=== PATIENT | female | born 1995 | race Caucasian/White ===

== ENCOUNTER → 2017-02-16 | Outpatient (CLI) | payer OTHER ==
--- NOTE | 2017-02-16 16:16 | REP ---
LUMBAR SPINE, FIVE VIEWS: HISTORY: Back pain. There is no acute fracture or subluxation. The L3-4 and L4-5 intervertebral discs are decreased in height consistent with disc degeneration. The facet joints are normal in appearance. IMPRESSION: Degenerative change as described above. Signed by James Jama MD 02/16/2017 04:20 P
== END ==
LOC: M WUC 15:26
PROVIDERS: ATTEND Physician Assistant
DX: M54.5 Low back pain (principal)

== ENCOUNTER → 2017-11-11 | Outpatient (REF) | payer OTHER | LOC: M SFHCLERA 15:29 | DX: J02.9 Acute pharyngitis, unspecified (principal) ==

== ENCOUNTER → 2018-05-30 | Outpatient (CLI) | payer BC ==
--- NOTE | 2018-05-30 16:56 | REP ---
KUB, ONE VIEW: HISTORY: Lower abdominal pain. A small amount of air is present in the intestine. There are no air fluid levels or dilated loops of intestine. There is no pneumoperitoneum. A moderate amount of stool is present in the colon. IMPRESSION:Nonspecific bowel gas pattern. Electronically Signed by James Jama MD 05/30/2018 05:02 P
[2018-05-30 17:11] LABS: ALBUMIN 4.2 GM/DL (3.2-5.2); ALT/SGPT 29 U/L (12-78); BILIRUBIN,TOTAL 0.5 MG/DL (0.2-1.0); BLOOD UREA NITROGEN 11 MG/DL (7-18); CALCIUM LEVEL 8.9 MG/DL (8.5-10.1); CARBON DIOXIDE LEVEL 27 MEQ/L (21-32); CHLORIDE LEVEL 99 MEQ/L (98-107); CREATININE FOR GFR 0.86 MG/DL (0.55-1.30); FREE T4 1.28 NG/DL (0.76-1.46); GLOMERULAR FILTRATION RATE > 60.0 (>60); GLUCOSE, FASTING 86 MG/DL (70-100); POTASSIUM SERUM 4.1 MEQ/L (3.5-5.1); SODIUM LEVEL 137 MEQ/L (136-145); THYROID STIMULATING HORMONE 0.879 uIU/ML (0.358-3.740); TOTAL PROTEIN 7.3 GM/DL (6.4-8.2)
[2018-05-30 17:29] LABS: BASO # 0.1 10^3/uL (0.0-0.2); BASO % 0.9 % (0.0-1.0); EOS # 0.1 10^3/uL (0.0-0.50); EOS % 0.7 % (0.0-3.0); HEMATOCRIT 43.7 % (36.0-47.0); HEMOGLOBIN 14.9 g/dl (12.0-15.5); LYMPH % 27.6 % (24.0-44.0); MEAN CORPUSCULAR HGB CONC 34.1 g/dl (32.0-36.5); MEAN CORPUSCULAR VOLUME 90.9 fl (80.0-96.0); MONO # 0.5 10^3/uL (0.0-0.8); MONO % 7.3 % (0.0-5.0); NEUTROPHILS # 4.7 10^3/uL (1.8-7.7); NEUTROPHILS % 63.1 % (36.0-66.0); PLATELET COUNT, AUTOMATED 281 10^3/uL (150-450); RED BLOOD COUNT 4.81 10^6/uL (4.00-5.40); WHITE BLOOD COUNT 7.4 10^3/uL (4.0-10.0)
[2018-05-30 19:23] LABS: CHLAMYDIA DNA AMPLIFICATION NEGATIVE (NEGATIVE); GC DNA AMPLIFICATION NEGATIVE (NEGATIVE)
== END ==
LOC: M WUC 13:08
PROVIDERS: ATTEND Physician Assistant
DX: R10.30 Lower abdominal pain, unspecified (principal)

== ENCOUNTER → 2018-05-30 | Outpatient (CLI) | payer BC ==
[~2018-05-30] MED LIST: GASTROGRAFIN SOLUTION 30ML (Q9963) As Ordered ONE; ISOVUE-370 76% 100ML VIAL (Q9967) As Ordered ONE
--- NOTE | 2018-05-30 19:32 | REP ---
CT ABDOMEN AND PELVIS WITHOUT CONTRAST: HISTORY: Low abdominal pain. The liver, gallbladder, pancreas, spleen, adrenal glands and kidneys are normal in appearance. There is no mass, adenopathy or free fluid. The visualized lungs are clear. The urinary bladder and uterus are normal in appearance. A 2.8 cm hypodensity is present in the left pelvis. This may represent an ovarian cyst. The bony structure is intact. IMPRESSION: There is a 2.8 cm hypodensity in the left pelvis that may represent an ovarian cyst. Ultrasound may be helpful for further evaluation. Electronically Signed by James Jama MD 05/30/2018 07:33 P
== END ==
LOC: M RAD 14:42
PROVIDERS: ATTEND Physician Assistant
DX: R10.30 Lower abdominal pain, unspecified (principal)
CPT/HCPCS: 74176; Q9963

== ENCOUNTER → 2018-06-06 | Outpatient (CLI) | payer BC ==
--- NOTE | 2018-06-06 19:41 | REP ---
Clinical: Pelvic pain . Technique: Transabdominal pelvic ultrasound followed by transvaginal examination for better evaluation of the endometrium and adnexa with color Doppler evaluation of the ovaries. Findings: Bladder is unremarkable and measures 7.7 x 6.9 x 4.8 cm . Normal anteverted uterus measures 8.7 x 3.1 x 5.3 cm . The endometrial complex measures 3.4 mm thickness. No discrete uterine or endometrial abnormalities are appreciated. Bilateral ovaries are normal in vascularity without evidence for torsion. Right ovary measures 2.4 x 1.1 x 1.7 cm ; R I = 0.39 . Left ovary measures 3.4 x 1.6 x 3.2 cm with 2.4 cm hemorrhagic follicle ; R I = 0.37 . No pelvic fluid or adnexal mass lesion . Impression: 1. Essentially normal pelvic ultrasound. 2.4 cm hemorrhagic follicle in the left ovary. Correlation is recommended and reevaluation in 4-6 weeks may be warranted to evaluate for resolution. Electronically Signed by Jovany Carpio MD 06/06/2018 07:32 P
== END ==
LOC: M RAD 13:27
PROVIDERS: ATTEND Physician Assistant
DX: R10.30 Lower abdominal pain, unspecified (principal)

== ENCOUNTER → 2018-07-22 | Outpatient (CLI) | payer BC ==
--- NOTE | 2018-07-22 18:02 | REP ---
Pelvic sonography: History: Ovarian cyst left side. Comparison CT study May 30, 2018. Comparison sonography June 06, 2018. Sonographic findings: Uterine dimensions are normal at 6.1 x 2.6 x 4.5 cm. Endometrial echo 0.8 cm thick and centrally placed. No focal uterine mass is seen. Visualized bladder dodge are smooth. Normal ovaries are seen bilaterally today. Right ovary dimensions are 2.8 x 1.5 x 1.3 cm. The left ovary measures 2.5 x 1.6 x 2.3 cm. Doppler flow is normal both ovaries. Resistive indices are measured at 0.60 on the right and 0.63 on the left. Impression: Normal pelvic sonography. Electronically Signed by Srinivas Marsh MD 07/22/2018 07:04 P
== END ==
LOC: M RAD 14:50
PROVIDERS: ATTEND Specialist
DX: N83.292 Other ovarian cyst, left side (principal)

== ENCOUNTER → 2018-11-01 | Outpatient (REF) | payer BC ==
[2018-11-01 21:09] LABS: CHLAMYDIA DNA AMPLIFICATION NEGATIVE (NEGATIVE); GC DNA AMPLIFICATION NEGATIVE (NEGATIVE)
== END ==
LOC: M LAB REF 17:25
PROVIDERS: ATTEND Specialist
DX: Z12.4 Encounter for screening for malignant neoplasm of cervix (principal); Z11.3 Encounter for screening for infections with a predominantly sexual mode of transmission

== ENCOUNTER → 2019-05-23 | Outpatient (CLI) | payer BC ==
[2019-05-23 17:40] LABS: BASO % 0.5 % (0.0-1.0); EOS # 0.1 10^3/uL (0.0-0.5); EOS % 0.7 % (0.0-3.0); HEMATOCRIT 37.4 % (36.0-47.0); LYMPH # 2.2 10^3/uL (1.5-5.0); LYMPH % 28.7 % (24.0-44.0); MEAN CORPUSCULAR HEMOGLOBIN 31.9 pg (27.0-33.0); MEAN CORPUSCULAR HGB CONC 34.8 g/dl (32.0-36.5); MEAN CORPUSCULAR VOLUME 91.7 fl (80.0-96.0); MONO # 0.4 10^3/uL (0.0-0.8); MONO % 5.4 % (0.0-5.0); NEUTROPHILS # 4.9 10^3/uL (1.5-8.5); PLATELET COUNT, AUTOMATED 218 10^3/uL (150-450); RED BLOOD COUNT 4.08 10^6/uL (4.00-5.40); WHITE BLOOD COUNT 7.6 10^3/uL (4.0-10.0)
[2019-05-23 19:58] LABS: CHLAMYDIA DNA AMPLIFICATION NEGATIVE (NEGATIVE); GC DNA AMPLIFICATION NEGATIVE (NEGATIVE)
[2019-05-24 13:30] LABS: HEPATITIS C VIRUS ABY INDEX < 0.0 INDEX (<0.8); HIV 1&2 SCREEN CENTAUR NEGATIVE (NEGATIVE); RUBELLA IgG QUALITATIVE IMMUNE (IMMUNE)
== END ==
LOC: M PLALAB 15:49
PROVIDERS: ATTEND Advanced Practice Midwife
DX: O36.80X1 Pregnancy with inconclusive fetal viability, fetus 1 (principal)

== ENCOUNTER → 2019-06-05 | Outpatient (CLI) | payer BC ==
[2019-06-05 14:05] LABS: HEMATOCRIT 37.4 % (36.0-47.0); HEMOGLOBIN 12.5 g/dl (12.0-15.5); MEAN CORPUSCULAR HEMOGLOBIN 31.4 pg (27.0-33.0); MEAN CORPUSCULAR HGB CONC 33.4 g/dl (32.0-36.5); PLATELET COUNT, AUTOMATED 201 10^3/uL (150-450); RED BLOOD COUNT 3.98 10^6/uL (4.00-5.40); WHITE BLOOD COUNT 7.7 10^3/uL (4.0-10.0)
[2019-06-05 14:33] LABS: TOTAL PROTEIN,RANDOM URINE 10.8 MG/DL (0.0-12.0)
[2019-06-05 14:35] LABS: ALT/SGPT 15 U/L (12-78); BILIRUBIN,TOTAL 0.4 MG/DL (0.2-1.0); CREATININE FOR GFR 0.66 MG/DL (0.55-1.30); GLOMERULAR FILTRATION RATE > 60.0 (>60); LDH LACTATE DEHYDROGENASE 151 U/L (84-246); URIC ACID 2.7 MG/DL (2.6-6.0)
== END ==
LOC: M PLALAB 11:15
PROVIDERS: ATTEND Advanced Practice Midwife
DX: O10.011 Pre-existing essential hypertension complicating pregnancy, first trimester (principal)

== ENCOUNTER → 2019-07-07 | Outpatient (CLI) | payer MEDICAID ==
--- NOTE | 2019-07-07 16:40 | REP ---
Clinical: Anatomical evaluation. Comparison: None . Findings: Examination demonstrates a single live intrauterine in breech presentation. motion is identified by technologist. Placenta is noted posterior and grade zero without evidence for placenta previa or abruption. Amniotic fluid volume is normal. Cervix measures 3.4 cm in length and appears closed. No evidence for nuchal cord. Gestational age by current measurements 18 weeks 1 day with STEPH 12/07/2019 . FHR equals 144 beats per minute. BPD 4.1 cm 18 weeks 3 days HC 15.0 cm 18 weeks 0 days AC 12.7 cm 18 weeks 2 days FL 2.6 cm 18 weeks 0 days HL 2.5 cm 17 weeks 6 days HC/AC ratio 1.18 Estimated weight 225 grams ( 48th percentile). Anatomical assessment demonstrates normal structures including cranium, choroid plexus, cavum, cerebellum/posterior fossa, facial features, lungs, diaphragm, stomach, cord insertion/three-vessel cord, kidneys/bladder, spine, and extremities. Impression: 1. Single live intrauterine in breech presentation demonstrating appropriate interval estimated weight. 2. Limited evaluation of the heart and ventricular outflow tracts. Remainder of the anatomical assessment is complete and normal.
== END ==
LOC: M WHC 14:45
PROVIDERS: ATTEND Advanced Practice Midwife
DX: O10.012 Pre-existing essential hypertension complicating pregnancy, second trimester (principal); Z3A.18 18 weeks gestation of pregnancy

== ENCOUNTER → 2019-08-10 | Outpatient (CLI) | payer MEDICAID ==
--- NOTE | 2019-08-10 14:14 | REP ---
OB ULTRASOUND: Real-time sonographic evaluation of the gravid uterus performed. There is a single living intrauterine gestation with an estimated gestational age 23 weeks 0 days, EDC 12/07/2019. Today's measurements indicate appropriate growth. Biometry and Growth: BPD 55 mm = 22 weeks 6 days, 49th percentile HC 210 mm = 23 weeks 1 day, 55th percentile AC 186 mm = 23 weeks 3 days, 60th percentile FL 39 mm = 22 weeks 4 days, 41st percentile HC/AC ratio 1.13 with in normal range Estimated weight 557 grams 49th percentile. SEEN/GROSSLY UNREMARKABLE Lateral ventricles Yes Posterior fossa Yes Upper lip Yes Four-chamber heart Yes LVOT Yes RVOT Yes Stomach Yes Cord insertion Yes Three vessel cord Yes Kidneys Yes Bladder Yes Spine Yes Cervical length: Closed and measures 2.8 cm in length. heart rate: 136 beats per minute. position: Vertex. Placenta: Posterior and grade 1 with no previa or abruption Amniotic fluid: Within normal limits.
== END ==
LOC: M WHC 10:55
PROVIDERS: ATTEND Advanced Practice Midwife
DX: Z36.2 Encounter for other antenatal screening follow-up (principal); O10.012 Pre-existing essential hypertension complicating pregnancy, second trimester; Z3A.23 23 weeks gestation of pregnancy

== ENCOUNTER → 2019-08-31 | Outpatient (REF) | payer OTHER, MEDICAID ==
[2019-08-31 17:39] LABS: HEMATOCRIT 34.2 % (36.0-47.0); HEMOGLOBIN 11.7 g/dl (12.0-15.5); MEAN CORPUSCULAR HEMOGLOBIN 32.7 pg (27.0-33.0); MEAN CORPUSCULAR HGB CONC 34.2 g/dl (32.0-36.5); MEAN CORPUSCULAR VOLUME 95.5 fl (80.0-96.0); PLATELET COUNT, AUTOMATED 215 10^3/uL (150-450); RED BLOOD COUNT 3.58 10^6/uL (4.00-5.40); WHITE BLOOD COUNT 10.4 10^3/uL (4.0-10.0)
== END ==
LOC: M PLALAB 14:23
PROVIDERS: ATTEND Advanced Practice Midwife
DX: O10.012 Pre-existing essential hypertension complicating pregnancy, second trimester (principal)

== ENCOUNTER → 2019-10-05 | Outpatient (CLI) | payer OTHER ==
--- NOTE | 2019-10-06 02:02 | REP ---
Clinical: Growth evaluation. Comparison: 08/10/2019 . Findings: Examination demonstrates a single live intrauterine in cephalic presentation. motion is identified by technologist. Placenta is noted posterior and grade I without evidence for placenta previa or abruption. Amniotic fluid volume is normal. Cervix measures 3.9 cm in length and appears closed. No evidence for nuchal cord. Gestational age by LMP 31 weeks 0 days with STEPH 12/07/2019 . Gestational age by current measurements 30 weeks 5 days with STEPH 12/09/2019 . FHR equals 147 beats per minute. BPD 8.0 cm 32 weeks 1 day HC 29.8 cm 33 weeks 0 days AC 27.3 cm 31 weeks 2 days FL 5.6 cm 29 weeks 2 days HL 5.2 cm 30 weeks 1 day HC/AC ratio 1.09 Estimated weight 1665 grams ( 42nd percentile). Amniotic fluid index: 11.9 cm Impression: single live intrauterine in cephalic presentation demonstrating appropriate interval growth. No gross abnormalities identified.
== END ==
LOC: M WHC 14:27
PROVIDERS: ATTEND Advanced Practice Midwife
DX: O10.013 Pre-existing essential hypertension complicating pregnancy, third trimester (principal); Z3A.30 30 weeks gestation of pregnancy

== ENCOUNTER → 2019-10-26 | Outpatient (CLI) | payer OTHER ==
--- NOTE | 2019-10-27 03:34 | REP ---
Clinical: Maternal hypertension. Growth evaluation. Comparison: 10/05/2019 . Findings: Examination demonstrates a single live intrauterine in cephalic presentation. motion is identified by technologist. Placenta is noted fundal and grade I without evidence for placenta previa or abruption. Amniotic fluid volume is normal. Cervix measures 3.2 cm in length and appears closed. No evidence for nuchal cord. Gestational age by LMP 34 weeks 0 days with STEPH 12/07/2019 . Gestational age by current measurements 32 weeks 1 day with STEPH 12/20/2019 . FHR equals 153 beats per minute. Amniotic fluid index: 10.1 cm Estimated weight 1790 grams ( 4th percentile based on age by LMP ). Impression: Single live intrauterine in cephalic presentation. Less than expected interval growth noted.
== END ==
LOC: M WHC 08:30
PROVIDERS: ATTEND Advanced Practice Midwife
DX: O10.013 Pre-existing essential hypertension complicating pregnancy, third trimester (principal); Z3A.34 34 weeks gestation of pregnancy

== ENCOUNTER → 2019-10-30 | Outpatient (CLI) | payer OTHER ==
--- NOTE | 2019-10-30 14:45 | REP ---
REASON: Feta; biophysical profile, IUGR. Multiple ultrasonographic images of the gravid uterus show a single living intrauterine gestation in the cephalic presentation. Doppler interrogation of the heart shows a heart rate of 135 beats per minute. Doppler interrogation of the umbilical artery shows an A/B ratio of 2.54 at the placental insertion which is within the normal range of 2 to 3 and 2.29 mid cord insertion, also within that normal range. The calculated amniotic fluid index is 12.9 with an expected range of 8 to 24.9. Biophysical profile score is 2 for breathing, 2 for movement, 2 for tone and 2 for amniotic fluid volume giving a sum total of 8/8. IMPRESSION: Limited OB ultrasound as described.
== END ==
LOC: M WHC 11:27
PROVIDERS: ATTEND Advanced Practice Midwife
DX: O36.5930 Maternal care for other known or suspected poor fetal growth, third trimester, not applicable or unspecified (principal); Z3A.00 Weeks of gestation of pregnancy not specified

== ENCOUNTER → 2019-11-03 | Outpatient (REF) | payer OTHER, MEDICAID ==
[~2019-11-03] MED LIST changes: +ACET-683 PO; +ASPI81CH33 PO; -GASTROGRAFIN SOLUTION 30ML (Q9963) As Ordered ONE; +IBUP80TA PO; -ISOVUE-370 76% 100ML VIAL (Q9967) As Ordered ONE; +LABE100T36 PO; +PREN29TA4 PO; +VALA1TAB5 PO
== END ==
LOC: M PLALAB 15:26
PROVIDERS: ATTEND Advanced Practice Midwife
DX: O36.5930 Maternal care for other known or suspected poor fetal growth, third trimester, not applicable or unspecified (principal); O10.013 Pre-existing essential hypertension complicating pregnancy, third trimester; Z3A.00 Weeks of gestation of pregnancy not specified

== ENCOUNTER → 2019-11-03 | Outpatient (REF) | payer OTHER, MEDICAID | LOC: M SFHCPLAZ 16:41 | PROVIDERS: ATTEND Advanced Practice Midwife | DX: O36.5930 Maternal care for other known or suspected poor fetal growth, third trimester, not applicable or unspecified (principal) ==

== ENCOUNTER → 2019-11-06 | Outpatient (CLI) | payer OTHER, MEDICAID ==
--- NOTE | 2019-11-06 15:54 | REP ---
OB ULTRASOUND: Real-time sonographic evaluation of the gravid uterus is performed. There is a single living intrauterine gestation with an estimated gestational age 35 weeks 4 days, EDC 12/07/2019. Today's measurements indicate appropriate growth. Biometry and Growth: BPD 89 mm = 35 weeks 6 days, 56th percentile HC 254 mm = 36 weeks 5 days, 70th percentile AC 305 mm = 34 weeks 3 days, 34th percentile FL 62 mm = 32 weeks 0 days, less than 5th percentile. HC/AC ratio 1.06 within normal range 0.93 to 1.12. Estimated weight 2361 grams, 26th percentile. SEEN/GROSSLY UNREMARKABLE Lateral ventricles Yes Posterior fossa Yes Upper lip Yes Four-chamber heart Yes LVOT Yes RVOT Yes Stomach Yes Cord insertion Yes Three vessel cord Yes Kidneys Yes Bladder Yes Spine Yes Cervical length: Closed and measures 2 cm in length heart rate: 140 beats per minute. position: Vertex. Placenta: Posterior and grade 2 with no previa or abruption. Amniotic fluid: Within normal limits. BAMBI 14.2, normal range of 7.6 to 24.9. Biophysical score: 8/8. S/D ratio: 2.58 within normal range of 2.0 to 3.0. RI: 0.61 within normal range 0.59 to 0.75.
== END ==
LOC: M WHC 10:36
PROVIDERS: ATTEND Advanced Practice Midwife
DX: O36.5930 Maternal care for other known or suspected poor fetal growth, third trimester, not applicable or unspecified (principal); Z3A.35 35 weeks gestation of pregnancy

== ENCOUNTER → 2019-11-13 | Outpatient (CLI) | payer OTHER ==
--- NOTE | 2019-11-13 12:17 | REP ---
Clinical: well-being. Comparison: 11/06/2019 . Findings: Examination demonstrates a single live intrauterine in cephalic presentation. motion is identified by technologist. Placenta is noted posterior and grade I I without evidence for placenta previa or abruption. Amniotic fluid volume is normal. Cervix measures 4.3 cm in length and appears closed. No evidence for nuchal cord. Gestational age by LMP 36 weeks 4 days with STEPH 12/07/2019 . FHR equals 142 beats per minute. Biophysical profile score: 8/8 Amniotic fluid index: 10.3 cm Impression: Single live advanced gestation in cephalic presentation. Biophysical profile score and amniotic fluid volume are normal.
== END ==
LOC: M WHC 11:28
PROVIDERS: ATTEND Advanced Practice Midwife
DX: Z36.89 Encounter for other specified antenatal screening (principal); O36.5930 Maternal care for other known or suspected poor fetal growth, third trimester, not applicable or unspecified; Z3A.36 36 weeks gestation of pregnancy

== ENCOUNTER 2019-11-19 08:43 | Inpatient (IN) | payer MEDICAID, OTHER ==
[~2019-11-19] VITALS: Ht 162.6 cm; Wt 101.9 kg
[2019-11-19] VITALS (13 sets, daily range): BP systolic 106–137; BP diastolic 57–75
[2019-11-19] MEDS ORDERED: VALA1TAB5 PO (09:40)
[2019-11-19] MEDS ORDERED: PREN29TA4 PO (09:40)
[2019-11-19] MEDS ORDERED: ASPI81CH33 PO (09:40)
[2019-11-19] MEDS ORDERED: LABE100T36 PO (09:40)
--- NOTE | 2019-11-19 10:15 | HPE ---
DATE OF ADMISSION: 11/19/2019 24-year-old, G1, P0 female at 37-3/7 weeks gestation by last menstrual period (LMP) consistent with 9-week ultrasound, estimated date of confinement (EDC) of 12/07/2019 presents for labor induction. The indication for induction less than 39 weeks is intrauterine growth restriction diagnosed earlier in the . She denies contractions or vaginal bleeding. There is good movement. MEDICAL HISTORY: Genital herpes. ALLERGIES: SULFA. SURGICAL HISTORY: None. SOCIAL HISTORY: The father of baby is involved. The patient denies cigarettes, alcohol, or drug use. She lives in [place]. FAMILY HISTORY: Noncontributory. PHYSICAL EXAMINATION: Blood pressure 124/74, pulse 84. She is in no apparent distress. Head and neck: Exam normal. Lungs: Clear. Heart: Regular rate and rhythm. Abdomen: Nontender. Gravid. heart tones category 1. Contractions none. Sterile vaginal exam: Cervix closed, 50%, -2, moderate consistency. Extremities: Nontender. LABS: GBS positive. Blood type A positive. ASSESSMENT: 24-year-old, G1 at 37 and 3 with previous diagnosis of intrauterine growth restriction. PLAN: Patient is admitted on 11/19/2019. Risks of induction were discussed.
[2019-11-19] MEDS: miSOPROStol 50 MCG 1/2 TAB (S0191) SL SCH ×4 (10:17→23:52)
[2019-11-19 10:18] LABS: HEMATOCRIT 34.6 % (36.0-47.0); HEMOGLOBIN 11.8 g/dl (12.0-15.5); MEAN CORPUSCULAR HEMOGLOBIN 31.5 pg (27.0-33.0); MEAN CORPUSCULAR HGB CONC 34.1 g/dl (32.0-36.5); MEAN CORPUSCULAR VOLUME 92.3 fl (80.0-96.0); PLATELET COUNT, AUTOMATED 207 10^3/uL (150-450); RED BLOOD COUNT 3.75 10^6/uL (4.00-5.40); WHITE BLOOD COUNT 9.5 10^3/uL (4.0-10.0)
[2019-11-20] VITALS (48 sets, daily range): BP systolic 101–143; BP diastolic 55–93
[2019-11-20] MEDS ORDERED: OXYTOCIN DRIP 30 UNITS in IV 1 EA IV SCH ×2 (09:00→22:41)
[2019-11-20] MEDS: LR 1,000 ML IV SCH ×3 (09:16→17:12)
[2019-11-20] MEDS ORDERED: PENICILLIN G POTASSIUM IV 5 MU in D5W MINI-BAG PLUS 100 ML IV STA (09:20)
--- NOTE | 2019-11-20 09:44 | IPNPDOC ---
Obstetrical Progress Note Date of Service Nov 20, 2019 Subjective Patient reports some cramping. Objective Vital Signs Date Time Temp Pulse Resp B/P (MAP) Pulse Ox O2 Delivery O2 Flow Rate FiO2 11/20/19 08:48 89 20 121/58 (79) 11/20/19 07:08 97.5 99 Room Air Assessment Heart Rate (FHR): 130 Variability: Moderate Accelerations: Positive Decelerations: None Heart Rate Tracing: Category I Tocometer Contractions: Yes Frequency: regular Strength: palpated as mild Sterile Vaginal Examination Dilation: 1cm Effacement (%): 90% Station: -1 Cervical Consistency: Soft Cervical Position: Anterior Postion/Presentation: Cephalic presentation Assessment and Plan Age: 24 : 1 Term: 0 Pre-term: 0 Abortions: 0 Livin EGA at Admission: 37.3 Weeks & Days 37.4 weeks today Status: Reassuring Group B Streptococcus: Positive Anticipate: Vaginal Delivery Additional Comments Morgan bulb placed with 60 cc of NS. Patient tolerated well. PCN to be started for +GBS. IV Pitocin to be started per order. REESE TORRES CNM Nov 20, 2019 09:44
[2019-11-20] MEDS ORDERED: PROMETHAZINE INJ 25 MG/ML VIAL (J2550) IV ONE (10:45)
[2019-11-20] MEDS ORDERED: BUTORPHANOL 2 MG/ML INJ (J0595) IV ONE (10:45)
[2019-11-20] MEDS: PENICILLIN G POTASSIUM IV 2.5 MU in IV 1 EA IV SCH ×2 (14:01→18:25)
[2019-11-20] MEDS ORDERED: FENTANYL 2MCG/ML ROPIVACAINE 0.2% IN 0.9% NACL 100ML IVBAG As Ordered ONE (17:01)
[2019-11-20] MEDS ORDERED: EPIDURAL/PCA KEYS XX PRN (18:15)
[2019-11-20] MEDS ORDERED: LACTATED RINGER'S 1000 ML IV PRN (18:15)
[2019-11-20] MEDS ORDERED: REFRIGERATOR IV KEYS XX PRN (18:15)
[2019-11-20] MEDS ORDERED: diphenhydrAMINE 50MG/ML VIAL (J1200) IV PRN (18:15)
[2019-11-20] MEDS ORDERED: ONDANSETRON 4MG/2ML VIAL IV PRN (18:15)
[2019-11-20] MEDS ORDERED: NALOXONE INJ 0.4MG/1ML VIAL (J2310 PER 1MG) IV PRN (18:15)
[2019-11-20] MEDS ORDERED: ePHEDrine SULFATE 25 MG/5 ML(5MG/ML) SYRINGE IV PRN (18:15)
[2019-11-20] MEDS ORDERED: EPIDURAL COMMENT XX SCH (18:15)
[2019-11-20] MEDS ORDERED: FENTANYL/ROPIVACAINE/NACL BAG 100 ML EPIDURAL SCH (18:15)
--- NOTE | 2019-11-20 18:39 | IPNPDOC ---
Obstetrical Progress Note Date of Service Nov 20, 2019 Subjective Patient reports she is comfortable with her epidural. Objective Vital Signs Date Time Temp Pulse Resp B/P (MAP) Pulse Ox O2 Delivery O2 Flow Rate FiO2 11/20/19 17:26 98.6 20 11/20/19 17:20 90 131/93 (106) 11/20/19 13:17 99 Room Air Assessment Heart Rate (FHR): 130 Variability: Moderate Accelerations: Positive Decelerations: None Heart Rate Tracing: Category I Tocometer Contractions: Yes Frequency: regular Sterile Vaginal Examination Dilation: 6 cm Effacement (%): 100% Station: -1 Postion/Presentation: Cephalic presentation Assessment and Plan Age: 24 Weeks & Days 37.4 weeks gestation; CHTN Status: Reassuring Group B Streptococcus: Positive Anticipate: Vaginal Delivery Additional Comments SROM prior to exam as patient is leaking clear fluid and no membranes noted with SVE. IV Pitocin is at 6 mu/min. REESE TORRES CNM Nov 20, 2019 18:39
[2019-11-20] MEDS ORDERED: ACETAMINOPHEN 500 MG TAB PO PRN (22:45)
[2019-11-20] MEDS ORDERED: DOCUSATE SODIUM 100 MG CAP PO PRN (22:45)
[2019-11-20] MEDS ORDERED: DIBUCAINE 1% OINTMENT 30GM TOP PRN (22:45)
[2019-11-20] MEDS ORDERED: IBUPROFEN 600MG TAB PO PRN (22:45)
[2019-11-20] MEDS ORDERED: ANUSOL HC CREAM 30GM TOP PRN (22:45)
[2019-11-20] MEDS ORDERED: RHOGAM 300 MCG (1500 IU) INJ (J2790) IM SCH (22:45)
[2019-11-20] MEDS ORDERED: ACETAMINOPHEN TAB 650MG DOSE (2X325MG) PO PRN (22:45)
[2019-11-20] MEDS ORDERED: MEASLES,MUMPS,RUBELLA VACCINE INJ (MMR-II) (90707) SC SCH (22:45)
[2019-11-20] MEDS ORDERED: METHYLERGONOVINE MALEATE 0.2 MG TAB PO PRN (22:45)
--- NOTE | 2019-11-20 22:53 | DNPDOC ---
[facility] Delivery Note Delivery Note DATE OF DELIVERY: 11/20/19 at 2205 PREDELIVERY DIAGNOSIS: 37-4/7 weeks' gestation and labor. POST DELIVERY DIAGNOSIS: Delivered. PROCEDURE: Spontaneous vaginal delivery. RESIDENTIAL APPLIANCE REPAIR TECHNICIAN: Reese Ford CNM, JEAN ANESTHESIA: epidural. ESTIMATED BLOOD LOSS: 300 mL. FINDINGS: 6 pounds 3 ounces; 2810 grams; male , Score 8/9, CHTN, suspected IUGR with normal weight at delivery. DELIVERY SUMMARY: Patient is a 24-year-old female who is now a who presented for IOL at 37.3 weeks gestation for CHTN and suspected IUGR. She received 4 doses of Cytotec, a gonzalez bulb and IV Pitocin for IOL. She progressed to fully dilated at 215 and pushed to a living female in the ALEAH position with restitution to ROT at 2205. The anterior shoulder delivered with ease and the corpus immediately followed. The baby was placed on the maternal abdomen active and crying with stimulation. The cord was clamped x2 after 2 minutes and cut by the FOB. A 3-vessel cord was noted. The placenta delivered spontaneously and intact at 221. Uterine hemostasis was achieved via rapid infusion of IV Pitocin and fundal massage. The vagina, cervix and perineum was inspected and she was found to have a first degree perineal laceration that was repaired with a 3.[address]-1. She was also found to have bilateral labial abrasions that were not repaired. Mom plans to breastfeed. They are naming him Julien. All counts of instruments and sponge counts are correct. REESE FORD CNM Nov 20, 2019 22:53
[2019-11-20] MEDS: IBUPROFEN 800 MG TAB PO PRN (23:38)
[2019-11-21 00:20] VITALS: BP 133/75
[2019-11-21 06:00] VITALS: BP 123/74
[2019-11-21] MEDS: PRENATAL VITAMINS CHEWABLE TABLET PO SCH (07:34)
[2019-11-21] MEDS: IBUPROFEN 800 MG TAB PO PRN (07:39)
[2019-11-21 18:00] VITALS: BP 136/85
[2019-11-22 05:30] VITALS: BP 126/86
[2019-11-22] MEDS: PRENATAL VITAMINS CHEWABLE TABLET PO SCH (07:25)
[2019-11-22] MEDS ORDERED: ACET-683 PO (08:17)
[2019-11-22] MEDS ORDERED: IBUP80TA PO (08:17)
== END 2019-11-22 11:40 | disposition home or self-care (01) | DRG 560 ==
LOC: M LDI 08:43 → M OBS 11-21 00:01
PROVIDERS: ADMIT Specialist; ATTEND Advanced Practice Midwife
PROC: 3E0P7GC Introduction of Other Therapeutic Substance into Female Reproductive, Via Natural or Artificial Opening (ICD-10-PCS; 2019-11-19)
PROC: 10E0XZZ Delivery of Products of Conception, External Approach (ICD-10-PCS; principal; 2019-11-20)
PROC: 0HQ9XZZ Repair Perineum Skin, External Approach (ICD-10-PCS; 2019-11-20)
DX: O36.5930 Maternal care for other known or suspected poor fetal growth, third trimester, not applicable or unspecified (principal); O10.02 Pre-existing essential hypertension complicating childbirth; O98.32 Other infections with a predominantly sexual mode of transmission complicating childbirth; Z3A.37 37 weeks gestation of pregnancy; O99.824 Streptococcus B carrier state complicating childbirth; O70.0 First degree perineal laceration during delivery; Z37.0 Single live birth; A60.09 Herpesviral infection of other urogenital tract

== ENCOUNTER → 2020-03-29 | Outpatient (REF) | payer OTHER, MEDICAID | LOC: M SFHCWAGY 10:39 | PROVIDERS: ATTEND Advanced Practice Midwife | DX: Z12.4 Encounter for screening for malignant neoplasm of cervix (principal); Z01.419 Encounter for gynecological examination (general) (routine) without abnormal findings ==

== ENCOUNTER → 2021-09-23 | Outpatient (REF) | payer OTHER ==
[~2021-09-23] MED LIST changes: -LABE100T36 PO; +LABE100T5 PO
== END ==
LOC: M SFHCCLAY 14:59
PROVIDERS: ATTEND Nurse Practitioner Family
DX: F34.1 Dysthymic disorder (principal); R23.8 Other skin changes; Z53.9 Procedure and treatment not carried out, unspecified reason

== ENCOUNTER → 2021-09-24 | Outpatient (CLI) | payer OTHER ==
[2021-09-24 08:48] LABS: BASO # 0.1 10^3/uL (0.0-0.2); BASO % 1.1 % (0.0-1.0); EOS # 0.1 10^3/uL (0.0-0.5); EOS % 1.6 % (0.0-3.0); HEMATOCRIT 42.1 % (36.0-47.0); HEMOGLOBIN 14.4 g/dl (12.0-15.5); LYMPH # 2.5 10^3/uL (1.5-5.0); LYMPH % 39.9 % (24.0-44.0); MEAN CORPUSCULAR HEMOGLOBIN 30.7 pg (27.0-33.0); MEAN CORPUSCULAR HGB CONC 34.2 g/dl (32.0-36.5); MEAN CORPUSCULAR VOLUME 89.8 fl (80.0-96.0); MONO # 0.4 10^3/uL (0.0-0.8); NEUTROPHILS # 3.1 10^3/uL (1.5-8.5); NEUTROPHILS % 50.1 % (36.0-66.0); PLATELET COUNT, AUTOMATED 251 10^3/uL (150-450); RED BLOOD COUNT 4.69 10^6/uL (4.00-5.40); WHITE BLOOD COUNT 6.2 10^3/uL (4.0-10.0)
[2021-09-24 08:57] LABS: INR 0.96; PARTIAL THROMBOPLASTIN TIME 28.1 SECONDS (25.9-37.0); PROTHROMBIN TIME 13.2 SECONDS (12.7-14.5)
== END ==
LOC: M LAB 07:21
PROVIDERS: ATTEND Nurse Practitioner Family
DX: F34.1 Dysthymic disorder (principal); R23.8 Other skin changes

== ENCOUNTER → 2022-07-01 | Outpatient (CLI) | payer OTHER ==
[~2022-07-01] MED LIST changes: -LABE100T5 PO; +LABE100T71 PO
== END ==
LOC: M RAD 11:06
PROVIDERS: ATTEND Nurse Practitioner Family
DX: R10.2 Pelvic and perineal pain (principal)

== ENCOUNTER → 2023-11-05 | Outpatient (CLI) | payer OTHER ==
[~2023-11-05] MED LIST changes: +LABE100T40 PO; -LABE100T71 PO
[2023-11-05 11:14] LABS: BASO # 0.1 10^3/uL (0.0-0.2); BASO % 0.7 % (0.0-1.0); EOS # 0.1 10^3/uL (0.0-0.5); EOS % 1.5 % (0.0-3.0); HEMATOCRIT 41.8 % (36.0-47.0); HEMOGLOBIN 14.1 g/dl (12.0-15.5); LYMPH # 2.2 10^3/uL (1.5-5.0); LYMPH % 29.1 % (24.0-44.0); MEAN CORPUSCULAR HEMOGLOBIN 30.7 pg (27.0-33.0); MEAN CORPUSCULAR HGB CONC 33.7 g/dl (32.0-36.5); MEAN CORPUSCULAR VOLUME 91.1 fl (80.0-96.0); MONO # 0.5 10^3/uL (0.0-0.8); MONO % 6.2 % (2.0-8.0); NEUTROPHILS # 4.7 10^3/uL (1.5-8.5); NEUTROPHILS % 62.2 % (36.0-66.0); PLATELET COUNT, AUTOMATED 262 10^3/uL (150-450); RED BLOOD COUNT 4.59 10^6/uL (4.00-5.40); WHITE BLOOD COUNT 7.5 10^3/uL (4.0-10.0)
[2023-11-05 11:52] LABS: TOTAL 25(OH) VITAMIN D 31.5 NG/ML (20.0-100.0)
[2023-11-05 11:53] LABS: FERRITIN 44.7 NG/ML (7.3-270.7); FOLATE 15.7 NG/ML (>5.4); THYROID STIMULATING HORMONE 1.857 uIU/ML (0.55-4.78)
[2023-11-05 11:54] LABS: ALBUMIN 3.9 G/DL (3.2-5.2); ALKALINE PHOSPHATASE 79 U/L (46-116); ALT/SGPT 15 U/L (7.0-40); AST/SGOT < 8 U/L (<34); BILIRUBIN,TOTAL 0.5 MG/DL (0.3-1.2); BLOOD UREA NITROGEN 11 MG/DL (9-23); CALCIUM LEVEL 9.3 MG/DL (8.5-10.1); CARBON DIOXIDE LEVEL 27 MMOL/L (20-31); CHLORIDE LEVEL 108 MMOL/L (98-107); CHOLESTEROL LEVEL 156 MG/DL (<200); CHOLESTEROL RISK RATIO 3.58 (<5); CREATININE FOR GFR 0.81 MG/DL (0.55-1.30); FREE T4 1.09 NG/DL (0.89-1.76); GLOMERULAR FILTRATION RATE > 60.0 (>60); GLUCOSE, FASTING 98 MG/DL (60-100); HDL CHOLESTEROL 43.5 MG/DL (>40); LDL CHOLESTEROL 99.7 MG/DL (<100); NON-HDL-C 112.5 MG/DL; POTASSIUM SERUM 4.6 MMOL/L (3.5-5.1); SODIUM LEVEL 139 MMOL/L (136-145); TOTAL PROTEIN 6.5 G/DL (5.7-8.2); TRIGLYCERIDES LEVEL 64 MG/DL (<150)
[2023-11-05 11:57] LABS: VITAMIN B12 LEVEL 518 PG/ML (211-911)
[2023-11-05 12:13] LABS: HEMOGLOBIN A1c 5.1 % (4.0-6.0)
== END ==
LOC: M PLALAB 08:13
PROVIDERS: ATTEND Physician Assistant
DX: L65.9 Nonscarring hair loss, unspecified (principal); R63.4 Abnormal weight loss; R53.83 Other fatigue

== ENCOUNTER → 2024-03-23 | Outpatient (REF) | payer OTHER ==
[2024-03-27 16:42] LABS: HPV APTIMA Not Detected (Not Detected)
== END ==
LOC: M SFHCWAGY 17:33
PROVIDERS: ATTEND Nurse Practitioner Family
DX: Z12.4 Encounter for screening for malignant neoplasm of cervix (principal)

== ENCOUNTER → 2024-11-06 | Outpatient (CLI) | payer OTHER ==
[2024-11-06 11:52] LABS: Trichomonas vaginalis (AMP) NOT DETECTED (NEGATIVE)
[2024-11-06 12:15] LABS: GC DNA AMPLIFICATION NEGATIVE (NEGATIVE)
[2024-11-06 13:36] LABS: HEMOGLOBIN A1c 4.8 % (4.0-6.0)
[2024-11-06 13:47] LABS: CHOLESTEROL LEVEL 184 MG/DL (<200); CHOLESTEROL RISK RATIO 3.29 (<5); HDL CHOLESTEROL 55.9 MG/DL (>40); LDL CHOLESTEROL 107.9 MG/DL (<100); NON-HDL-C 128.1 MG/DL; TRIGLYCERIDES LEVEL 101 MG/DL (<150)
[2024-11-06 13:49] LABS: FREE T4 1.38 NG/DL (0.89-1.76); THYROID STIMULATING HORMONE 1.318 uIU/ML (0.55-4.78)
[2024-11-06 14:45] LABS: HEPATITIS B SURFACE ANTIGEN NEGATIVE (NEGATIVE)
[2024-11-06 14:57] LABS: HIV 1&2 SCREEN NEGATIVE (NEGATIVE)
[2024-11-06 15:05] LABS: HEPATITIS C VIRUS ABY INDEX 0.03 INDEX (<0.8)
[2024-11-06 15:06] LABS: HEPATITIS B CORE ANTIBODY IGM NEGATIVE (NEGATIVE)
== END ==
LOC: M PLALAB 08:56
PROVIDERS: ATTEND Nurse Practitioner Family
DX: Z11.3 Encounter for screening for infections with a predominantly sexual mode of transmission (principal); Z13.1 Encounter for screening for diabetes mellitus; Z13.220 Encounter for screening for lipoid disorders; Z13.29 Encounter for screening for other suspected endocrine disorder

== ENCOUNTER → 2025-03-29 | Outpatient (REF) | payer OTHER | LOC: M SFHCWAGY 15:38 | PROVIDERS: ATTEND Nurse Practitioner Family | DX: N73.9 Female pelvic inflammatory disease, unspecified (principal) ==